=== PATIENT | male | born 1965 | race Caucasian/White ===

== ENCOUNTER 2017-12-05 16:32 | Inpatient (IN) | payer OTHER ==
[~2017-12-05] VITALS: Ht 170.2 cm; Wt 148.9 kg
[2017-12-05 16:38] VITALS: Ht 170.2 cm; Wt 148.9 kg
[2017-12-05 18:05] LABS: BASOPHIL % 0.5 % (0-2); PLATELET COUNT 162 x10^3mcL (130-400); RED CELL DISTRIBUTION WIDTH 13.3 % (11.5-14.5)
[2017-12-05 18:09] LABS: microscopic required? YES; urine erythrocyte 2+ (NEGATIVE)
[2017-12-05 18:15] LABS: CALCIUM 8.5 mg/dL (8.5-10.1); CARBON DIOXIDE 29.7 mmol/L (21-32); CREATININE SERUM 1.4 mg/dL (0.7-1.3); POTASSIUM SERUM 4.9 mmol/L (3.5-5.1)
[2017-12-05 18:20] LABS: BILIRUBIN TOTAL 0.4 mg/dL (0.20-1.00); TOTAL PROTEIN, SERUM 7.2 g/dL (6.4-8.2)
[2017-12-05 18:23] LABS: ALBUMIN 2.8 g/dL (3.4-5.0)
[2017-12-05] MEDS ORDERED: METFORMIN850 M1 PO (19:06)
[2017-12-05] MEDS ORDERED: LISINOPRIL30 M1 PO (19:06)
[2017-12-05] MEDS ORDERED: GLUCOTROL5 MG PO (19:07)
[2017-12-05 19:48] LABS: MAGNESIUM 1.8 mg/dL (1.8-2.4); PHOSPHOROUS 3.3 mg/dL (2.5-4.9)
[2017-12-05 19:55] LABS: T3 TOTAL 1.19 ng/mL
[2017-12-05 20:01] VITALS: BP 171/80
[2017-12-05 20:01] LABS: FREE T4 1.07 ng/dL (0.76-1.46); FREE THYROXINE INDEX 2.4 ug/dL (1.4-4.5); T4(THYROXINE) 7.2 ug/dL (4.7-13.3)
[2017-12-05 20:07] LABS: AMPHETAMINE QUAL UR NONE DETECTED (NEG <=1000)
[2017-12-05 20:19] VITALS: BP 171/80
[2017-12-05 22:42] VITALS: BP 171/80
[2017-12-06 05:10] VITALS: BP 163/80
[2017-12-06 06:49] LABS: BASOPHIL % 0.4 % (0-2); PLATELET COUNT 144 x10^3mcL (130-400); RED CELL DISTRIBUTION WIDTH 13.6 % (11.5-14.5)
[2017-12-06 07:10] LABS: CALCIUM 8.2 mg/dL (8.5-10.1); CREATININE SERUM 1.4 mg/dL (0.7-1.3); POTASSIUM SERUM 4.7 mmol/L (3.5-5.1)
[2017-12-06 10:19] VITALS: BP 150/85
[2017-12-06 13:47] VITALS: BP 152/91
[2017-12-06 16:53] VITALS: BP 149/82
[2017-12-06 21:31] VITALS: BP 163/85
[2017-12-06 22:02] VITALS: BP 154/85
[2017-12-07 06:08] VITALS: BP 127/84
[2017-12-07 06:45] LABS: BASOPHIL % 0.1 % (0-2); PLATELET COUNT 143 x10^3mcL (130-400); RED CELL DISTRIBUTION WIDTH 13.7 % (11.5-14.5)
[2017-12-07 07:26] LABS: CALCIUM 8.5 mg/dL (8.5-10.1); CARBON DIOXIDE 28.2 mmol/L (21-32); CREATININE SERUM 1.7 mg/dL (0.7-1.3); MAGNESIUM 1.8 mg/dL (1.8-2.4); PHOSPHOROUS 5.2 mg/dL (2.5-4.9); POTASSIUM SERUM 5.3 mmol/L (3.5-5.1)
[2017-12-07 08:58] VITALS: BP 155/91
[2017-12-07 13:30] VITALS: BP 139/78
[2017-12-07 16:55] VITALS: BP 148/76; BP 168/76
[2017-12-07 19:10] LABS: CALCIUM 8.4 mg/dL (8.5-10.1); CREATININE SERUM 1.9 mg/dL (0.7-1.3); POTASSIUM SERUM 4.6 mmol/L (3.5-5.1)
[2017-12-07 21:25] VITALS: BP 147/74
[2017-12-08 05:43] VITALS: BP 150/91
[2017-12-08 06:41] LABS: PLATELET COUNT 152 x10^3mcL (130-400); RED CELL DISTRIBUTION WIDTH 13.3 % (11.5-14.5)
[2017-12-08 06:47] LABS: BASOPHIL % 0 % (0-2)
[2017-12-08 06:48] LABS: CALCIUM 8.2 mg/dL (8.5-10.1); CARBON DIOXIDE 26.7 mmol/L (21-32); CREATININE SERUM 1.7 mg/dL (0.7-1.3); PHOSPHOROUS 5.2 mg/dL (2.5-4.9); POTASSIUM SERUM 4.7 mmol/L (3.5-5.1)
[2017-12-08 09:39] VITALS: BP 154/78
[2017-12-08 13:41] VITALS: BP 139/84
[2017-12-08] MEDS ORDERED: LOP50 PO (16:08)
[2017-12-08] MEDS ORDERED: APR10 PO (16:08)
[2017-12-08] MEDS ORDERED: LIPI20 PO (16:08)
[2017-12-08] MEDS ORDERED: ZES20 PO (16:09)
[2017-12-08] MEDS ORDERED: L40 PO (16:09)
[2017-12-08] MEDS ORDERED: GLU10 PO (16:10)
[2017-12-08] MEDS ORDERED: MED4 PO (16:47)
[2017-12-08] MEDS ORDERED: BG FS (16:52)
[2017-12-08] MEDS ORDERED: LEVEMIR100 U/M1 SC (16:52)
[2017-12-08 17:36] VITALS: BP 139/84
[2017-12-08 17:38] VITALS: BP 147/99
== END 2017-12-08 18:34 | disposition home or self-care (01) | DRG 177 ==
LOC: ED 16:32 → DU 19:06
PROVIDERS: Emergency Medicine; Family Medicine
DX: J69.0 Pneumonitis due to inhalation of food and vomit (principal); N17.0 Acute kidney failure with tubular necrosis; E43 Unspecified severe protein-calorie malnutrition; Z68.43 Body mass index [BMI] 50.0-59.9, adult; J45.901 Unspecified asthma with (acute) exacerbation; I16.0 Hypertensive urgency; E11.65 Type 2 diabetes mellitus with hyperglycemia; E78.2 Mixed hyperlipidemia; G89.29 Other chronic pain; M54.9 Dorsalgia, unspecified; I12.9 Hypertensive chronic kidney disease with stage 1 through stage 4 chronic kidney disease, or unspecified chronic kidney disease; E86.0 Dehydration; R31.9 Hematuria, unspecified; B34.9 Viral infection, unspecified; E11.22 Type 2 diabetes mellitus with diabetic chronic kidney disease; N18.9 Chronic kidney disease, unspecified; E66.01 Morbid (severe) obesity due to excess calories
CPT/HCPCS: 82962; 83880; 84439; 87804; 90658; J1815; J1885; J1940; J1956; J2920; J2930; J3490; J7030; J7613; J7620; J7644; Q0092

== ENCOUNTER 2018-04-11 01:32 | Emergency (ER) | payer OTHER ==
[~2018-04-11] VITALS: Ht 170.2 cm; Wt 142.4 kg
[~2018-04-11 01:32] MED LIST: APR10 PO; BG FS; GLU10 PO; GLUCOTROL5 MG PO; L40 PO; LEVEMIR100 U/M1 SC; LIPI20 PO; LISINOPRIL30 M1 PO; LOP50 PO; MED4 PO; METFORMIN850 M1 PO; ZES20 PO
[2018-04-11 01:39] VITALS: BP 165/99; Ht 170.2 cm; Wt 142.4 kg
== END 2018-04-11 02:57 | disposition left against medical advice (07) ==
LOC: ED 01:32
DX: Z53.21 Procedure and treatment not carried out due to patient leaving prior to being seen by health care provider (principal)

== ENCOUNTER 2018-04-11 08:56 | Emergency (ER) | payer OTHER ==
[~2018-04-11] VITALS: Ht 170.2 cm; Wt 141.1 kg
[2018-04-11 09:02] VITALS: Ht 170.2 cm; Wt 141.1 kg
[2018-04-11 10:32] LABS: BASOPHIL % 0.4 % (0-2); PLATELET COUNT 160 x10^3mcL (130-400); RED CELL DISTRIBUTION WIDTH 14.2 % (11.5-14.5)
[2018-04-11 10:38] LABS: UA SPECIFIC GRAVITY >=1.030 (1.005-1.035); microscopic required? YES; urine erythrocyte 2+ (NEGATIVE)
[2018-04-11 10:44] LABS: CALCIUM 7.9 mg/dL (8.5-10.1); CARBON DIOXIDE 24.9 mmol/L (21-32); CREATININE SERUM 1.5 mg/dL (0.7-1.3); POTASSIUM SERUM 4.3 mmol/L (3.5-5.1)
[2018-04-11 10:49] LABS: BILIRUBIN TOTAL 0.6 mg/dL (0.20-1.00); TOTAL PROTEIN, SERUM 7.1 g/dL (6.4-8.2)
[2018-04-11 10:51] LABS: ALBUMIN 2.9 g/dL (3.4-5.0)
[2018-04-11 14:00] VITALS: BP 120/62
== END 2018-04-11 14:00 | disposition home or self-care (01) ==
LOC: ED 08:56
PROVIDERS: Emergency Medicine
DX: R11.10 Vomiting, unspecified (principal); R19.7 Diarrhea, unspecified; R10.31 Right lower quadrant pain; E46 Unspecified protein-calorie malnutrition; E11.22 Type 2 diabetes mellitus with diabetic chronic kidney disease; I12.9 Hypertensive chronic kidney disease with stage 1 through stage 4 chronic kidney disease, or unspecified chronic kidney disease; N18.9 Chronic kidney disease, unspecified; M10.9 Gout, unspecified; E66.01 Morbid (severe) obesity due to excess calories; E78.00 Pure hypercholesterolemia, unspecified
CPT/HCPCS: 83880; J1885; J2405; J7030

== ENCOUNTER 2018-07-07 22:58 | Inpatient (IN) | payer MEDICAID ==
[~2018-07-07] VITALS: Ht 170.2 cm; Wt 150.2 kg
[2018-07-08] VITALS (8 sets, daily range): BP systolic 107–158; BP diastolic 49–88
[2018-07-08 00:05] LABS: BASOPHIL % 0.2 % (0-2); PLATELET COUNT 160 x10^3mcL (130-400); RED CELL DISTRIBUTION WIDTH 13.4 % (11.5-14.5)
[2018-07-08 00:18] LABS: BILIRUBIN TOTAL 0.5 mg/dL (0.20-1.00); CALCIUM 8.2 mg/dL (8.5-10.1); CARBON DIOXIDE 26.4 mmol/L (21-32); CREATININE SERUM 1.5 mg/dL (0.7-1.3); TOTAL PROTEIN, SERUM 6.8 g/dL (6.4-8.2)
[2018-07-08 00:21] LABS: ALBUMIN 3.1 g/dL (3.4-5.0)
[2018-07-08 00:22] LABS: POTASSIUM SERUM 5.6 mmol/L (3.5-5.1)
[2018-07-08 01:52] LABS: MAGNESIUM 1.8 mg/dL (1.8-2.4); PHOSPHOROUS 2.8 mg/dL (2.5-4.9)
[2018-07-08 01:59] LABS: T3 TOTAL 1.13 ng/mL
[2018-07-08 02:03] LABS: CHOLESTEROL/HDL RATIO 3.3
[2018-07-08 02:11] LABS: FREE T4 0.99 ng/dL (0.76-1.46); FREE THYROXINE INDEX 3.1 ug/dL (1.4-4.5); T4(THYROXINE) 8.8 ug/dL (4.7-13.3)
[2018-07-08 06:34] LABS: BASOPHIL % 0.4 % (0-2); PLATELET COUNT 143 x10^3mcL (130-400); RED CELL DISTRIBUTION WIDTH 13.8 % (11.5-14.5)
[2018-07-08 06:50] LABS: CALCIUM 7.9 mg/dL (8.5-10.1); CARBON DIOXIDE 25.7 mmol/L (21-32); CREATININE SERUM 1.7 mg/dL (0.7-1.3)
[2018-07-08 06:58] LABS: POTASSIUM SERUM 6.1 mmol/L (3.5-5.1)
[2018-07-08 08:44] LABS: microscopic required? YES; urine erythrocyte 2+ (NEGATIVE)
[2018-07-09 05:47] VITALS: BP 155/63
[2018-07-09 08:13] VITALS: BP 129/68
[2018-07-09 08:16] LABS: BASOPHIL % 0.5 % (0-2); PLATELET COUNT 141 x10^3mcL (130-400)
[2018-07-09 08:50] LABS: CARBON DIOXIDE 28.2 mmol/L (21-32); CREATININE SERUM 1.7 mg/dL (0.7-1.3)
[2018-07-09 09:23] VITALS: Ht 170.2 cm; Wt 150.2 kg
[2018-07-09 12:17] VITALS: BP 135/76
[2018-07-09 16:22] VITALS: BP 147/78
[2018-07-09 20:55] VITALS: BP 145/56
[2018-07-10 05:34] VITALS: BP 148/61
[2018-07-10 05:41] LABS: BASOPHIL % 0.8 % (0-2); PLATELET COUNT 141 x10^3mcL (130-400)
[2018-07-10 05:58] LABS: CALCIUM 8.5 mg/dL (8.5-10.1); CARBON DIOXIDE 28.7 mmol/L (21-32); CREATININE SERUM 1.7 mg/dL (0.7-1.3); POTASSIUM SERUM 4.9 mmol/L (3.5-5.1)
[2018-07-10 09:22] VITALS: BP 141/62
[2018-07-10] MEDS ORDERED: LEVAQUIN750 MG PO (12:17)
[2018-07-10 12:59] VITALS: BP 178/79
[2018-07-10 13:50] VITALS: BP 137/65
[2018-07-10 13:51] VITALS: BP 137/65
== END 2018-07-10 15:23 | disposition still patient (30) | DRG 720 ==
LOC: ED 22:58 → DU 07-08 00:46
PROVIDERS: Emergency Medicine; Internal Medicine
DX: A41.9 Sepsis, unspecified organism (principal); N17.0 Acute kidney failure with tubular necrosis; J96.01 Acute respiratory failure with hypoxia; J18.9 Pneumonia, unspecified organism; E11.22 Type 2 diabetes mellitus with diabetic chronic kidney disease; E11.65 Type 2 diabetes mellitus with hyperglycemia; E87.5 Hyperkalemia; E44.1 Mild protein-calorie malnutrition; E66.01 Morbid (severe) obesity due to excess calories; Z68.43 Body mass index [BMI] 50.0-59.9, adult; R65.20 Severe sepsis without septic shock; N39.0 Urinary tract infection, site not specified; I12.9 Hypertensive chronic kidney disease with stage 1 through stage 4 chronic kidney disease, or unspecified chronic kidney disease; N18.9 Chronic kidney disease, unspecified; M10.9 Gout, unspecified; E78.5 Hyperlipidemia, unspecified
CPT/HCPCS: 36600; 82962; 83880; 84439; 87804; 90658; 94150; J1815; J1956; J2543; J3490; J7030; J7620; Q0092

== ENCOUNTER 2019-04-18 19:49 | Inpatient (IN) | payer OTHER ==
[~2019-04-18] VITALS: Ht 170.2 cm; Wt 142.0 kg
[~2019-04-18 19:49] MED LIST changes: +LEVAQUIN750 MG PO
[2019-04-18 20:11] VITALS: Ht 170.2 cm; Wt 142.0 kg
--- NOTE | 2019-04-18 20:59 | NUR ---
CALLED TO JONATHON MONTGOMERY, PT STATED HE HAS BEEN "CONSTIPATED FOR 3-4 DAYS" PT SITTING ON TOILET AND STATING "I TOOK SOME EPSOM SALT AND STOOL SOFTENER AND NOW I FEEL LIKE I HAVE TO GO BUT NOTHING IS COMING OUT. I'M HAVING PAIN RIGHT RIGHT" HE POINTED TO RIGHT FLANK. PT A&OX4 IN MILD DISTRESS,ASKING WHAT HE SHOULD DO. EXPLAINED TO PT THAT THE MEDICATION HE TOOK IS PROBABLY TAKING EFFECT AND WILL RECHECK ON HIM SOON.
[2019-04-18 21:31] LABS: BASOPHIL % 0.6 % (0-2); PLATELET COUNT 186 x10^3mcL (130-400)
[2019-04-18 21:34] LABS: RED CELL DISTRIBUTION WIDTH 15.2 % (11.5-14.5)
[2019-04-18 21:48] LABS: CALCIUM 8.8 mg/dL (8.5-10.1); CARBON DIOXIDE 25.4 mmol/L (21-32); CREATININE SERUM 3.2 mg/dL (0.7-1.3); POTASSIUM SERUM 4.9 mmol/L (3.5-5.1)
--- NOTE | 2019-04-18 21:53 | NUR ---
PATIENT SEEN WITH COMPLAIN TOF CONSTIPATION, CLAIM CALL [phone] [facility] BECAUSE HE WAS SEEING "BLACK". PATIENT REPORTS NO BM SINCE MONDAY. SEEN BY MD. BLOOD WAS COLLECTE. PATIENT HAD XRAY DONE. SALINE LOCK INSERTED AT THIS TIME FOR ANTIBIOTIC.PATIENT REPORT HE HAS A RECTAL ABSCESS, AND H/O SAME.
[2019-04-18 21:55] LABS: FREE T4 1.05 ng/dL (0.76-1.46); FREE THYROXINE INDEX 2.3 ug/dL (1.4-4.5)
[2019-04-18 22:00] LABS: BILIRUBIN TOTAL 0.3 mg/dL (0.20-1.00); C REACTIVE PROTEIN 4.2 mg/dL (<=0.9); TOTAL PROTEIN, SERUM 7.5 g/dL (6.4-8.2)
[2019-04-18 22:03] LABS: ALBUMIN 2.9 g/dL (3.4-5.0)
[2019-04-18] MEDS ORDERED: TRAZODONE50 M1 PO (22:06)
[2019-04-18] MEDS ORDERED: ADULT LOW DOSE81 MG PO (22:06)
[2019-04-18] MEDS ORDERED: BACTRIM DS1 TAB PO (22:06)
[2019-04-18] MEDS ORDERED: OSTERA TABLET1 EACH (22:07)
[2019-04-18] MEDS ORDERED: CLONAZEPAM2 MG PO (22:07)
[2019-04-18 22:21] LABS: ERYTHROCYTE SED RATE 98 mm/hr (0-20)
[2019-04-18 22:30] LABS: T3 TOTAL 0.96 ng/mL
[2019-04-18 22:45] LABS: CK-MB 2.1 ng/mL (0-3.6)
[2019-04-18 23:09] LABS: MAGNESIUM 1.9 mg/dL (1.8-2.4); PHOSPHOROUS 4.2 mg/dL (2.5-4.9)
--- NOTE | 2019-04-18 23:37 | NUR ---
PATIENT TRANSPORTED TO ROOM 238
[2019-04-19] VITALS (7 sets, daily range): BP systolic 143–176; BP diastolic 68–92
--- NOTE | 2019-04-19 | NUR ---
RECIEVED PT FROM ED VIA GURNEY, ACCOMPANIED BY NURSE. PT AMBULATED FROM [facility] TO BED BY SELF. ADMITTES WITH CC OF ABD PAIN WITH CONSTIPATION. PT HAD LARGE BM IN ED, DENIES ABD PAIN AT THIS TIME. A/OX4, CALM AND COOPERATIVE. DENIES RESPIRATORY DISTRESS AND SOB. BREATHING EVEN AND UNLABORED ON RA. TELE 12, NORMAL SINUS RHYTHM. DENIES CHEST PAIN, N/V, DIZZINESS, OR PALPATATIONS. ABD SOFT ROUND, OBESE. GENERALIZED TENDERNESS ON PALPATION. VOIDING FREELY. BLE PITTING EDEMA WITH DRY SCALY SKIN, THICKENED TOE NAILS. DRY DARK SCABS TO LEFT FIRST AND SECOND TOE AND R FOURTH TOE. SMALL PIMPLE LIKE WOUND TO LEFT UPPER THIGH, MANAGER INVENTORY. R BUTTOCK DRAINING ABSESS SURRONDED BY INDURATED ERTYTHEMIC SKIN. PURULENT DRAINAGE NOTED. WOUND CLEANED AND CULTURE OBTAINED. ISLAND DRESSING APPLIED. IV TO LFA INTACT AND INFUSING. ORIENTED TO DEVICES AND SURROUNDINGS. CALL LIGHT WITHIN REACH.
[2019-04-19] MEDS ORDERED: LISINOPRIL40 MG PO (00:42)
[2019-04-19] MEDS ORDERED: CLONIDINE HCL0.2 MG PO (00:44)
--- NOTE | 2019-04-19 00:46 | NUR ---
SPOKE TO PT, CONFIRMED CURRENT MEDICATIONS. MED REC UPDATED. INSTRUCTED PT NOT TO TAKE HOME MEDS. PT VERBALIZED UNDERSTANDING.
--- NOTE | 2019-04-19 00:50 | NUR ---
SPOKE TO DR. PEREIRA AND DR. PEOPLES. MADE AWARE OF CURRENT BP 167/77 AND PT HAS NOT TAKEN PM BP MEDS. MADE AWAKE OF PTS REQUEST OF SLEEP AID. STATED WILL CONTINUE HOME MEDS AND ORDER SLEEP AIDS.
--- NOTE | 2019-04-19 02:08 | NUR ---
PT RESTING IN BED WITH EYES CLOSED. LAYING ON L SIDE. SNORING. NO SIGNS OF DISTRESS NOTED. BREATHING EVEN/UNLABORED ON RA. CALL LIGHT WITHIN REACH, BED AT LOWEST POSITION. WILL CONTINUE TO MONITOR.
--- NOTE | 2019-04-19 02:30 | NUR ---
I HAVE REVIEWED THE DATA COLLECTION BY JUANJO YORK: [employer] [employer] ENTERED ON 04/18-04/19 I CONCUR WITH THE DATA AND ANY EXCEPTIONS OR COMMENTS ARE LISTED BELOW:
[2019-04-19 02:33] LABS: microscopic required? YES; urine erythrocyte 2+ (NEGATIVE)
[2019-04-19 02:46] LABS: AMPHETAMINE QUAL UR NONE DETECTED (See below)
--- NOTE | 2019-04-19 05:49 | NUR ---
PT RESTING IN BED COMFORTABLY WITH EYES CLOSED. NO S/S OF PAIN AT THIS TIME. DRESSING TO BUTTOCK CDI. PT FLIPPING MACHINE OPERATOR PENDING SURGICAL CONSULT. BED AT L0WEST POSITION. CALL LIGHT WITHIN REACH. WILL CONTINUE TO MONITOR.
[2019-04-19 06:13] LABS: BASOPHIL % 0.4 % (0-2); PLATELET COUNT 148 x10^3mcL (130-400)
[2019-04-19 06:26] LABS: CALCIUM 8.5 mg/dL (8.5-10.1); CARBON DIOXIDE 23.4 mmol/L (21-32); CREATININE SERUM 2.9 mg/dL (0.7-1.3); MAGNESIUM 2.2 mg/dL (1.8-2.4); PHOSPHOROUS 3.9 mg/dL (2.5-4.9)
[2019-04-19 07:11] LABS: RED CELL DISTRIBUTION WIDTH 15.1 % (11.5-14.5)
--- NOTE | 2019-04-19 07:27 | NUR ---
HANDOFF REPORT RECEIVED. US LEFT BUTTOCK COMPLETED AT BEDSIDE BY US TECH. LANA DYE DISCOMFORT. NOTED LEFT BUTTOCK WOUND. NS AT 100CC/HR INFUSING PERIPHERALLY. INSTRUCTED TO CALL RN FOR ASSIST.
--- NOTE | 2019-04-19 10:29 | NUR ---
OFF FLOOR TO OR VIA GUERNEY.
--- NOTE | 2019-04-19 11:42 | NUR ---
OR REPORT RECEIVED FROM JUANJO CORDOBA.
--- NOTE | 2019-04-19 12:09 | NUR ---
ARRIVED FROM OR S/P I&D RIGHT BUTTOCK. AWAKE AND ORIENTEDX3. WITH 4/10 INCISIONAL PAIN. BUTTOCK DRESSINGS DRY AND INTACT. VITAL SIGNS CHECKED. CALL MARY WITHIN REACH.
--- NOTE | 2019-04-19 15:49 | NUR ---
ASLEEP. RR 20. NO IN ANY DISTRESS.
--- NOTE | 2019-04-19 16:53 | NUR ---
NOT IN ANY DISTRESS. SCDs IN USE. BUTTOCK DRESSINGS DRY/INTACT.
--- NOTE | 2019-04-19 19:16 | NUR ---
HANDOFF REPORT GIVEN TO JUANJO ZARATE.
--- NOTE | 2019-04-19 19:16 | NUR ---
RECEIVED PT FROM PREVIOUS SHIFT. PT A/OX4. DENIES PAIN. DENIES SOB ON RA. IV TO LAC PATENT, INFUSING NS AT 100ML/HR WITH NO S/S OF INFILTRATION. PT SITTING UP IN CHAIR AT BEDSIDE. CALL LIGHT WITHIN REACH, BED IN LOW POSITION. WILL CONTINUE TO MONITOR.
[2019-04-20 05:49] VITALS: BP 140/81
[2019-04-20 06:31] LABS: BASOPHIL % 0.3 % (0-2); PLATELET COUNT 169 x10^3mcL (130-400)
[2019-04-20 06:49] LABS: CALCIUM 9.5 mg/dL (8.5-10.1); CARBON DIOXIDE 21.8 mmol/L (21-32); CREATININE SERUM 2.6 mg/dL (0.7-1.3); MAGNESIUM 2.4 mg/dL (1.8-2.4); PHOSPHOROUS 3.8 mg/dL (2.5-4.9)
[2019-04-20 06:52] LABS: POTASSIUM SERUM 5.6 mmol/L (3.5-5.1)
--- NOTE | 2019-04-20 06:53 | NUR ---
K+ 5.6. DR CLAIRE NOTIFIED VIA [facility]
[2019-04-20 07:18] LABS: RED CELL DISTRIBUTION WIDTH 15.1 % (11.5-14.5)
--- NOTE | 2019-04-20 07:30 | NUR ---
PT IS OX4; NO SOB AT RM AIR; TELE 12; DENIES CP; AMBULATORY DESIRED WITH STABLE GAIT, PER PT; RT BUTTOCK DSG IN INTACT AND WITH OLD BLOOD STAIN; NO ACTIVE BLEED; NSS AT 100 ML/HR INFUSING; LFA SITE PATENT AND WITHOUT INFILTRATION; SAFETY PRECAUTION REINFORCED; WILL CONTINUE TO MONITOR STATUS; DENIES PAIN THAT REQUIRE PAIN MED AT THIS TIME;
[2019-04-20 08:02] VITALS: BP 179/70
--- NOTE | 2019-04-20 09:00 | NUR ---
PT IS AMBULATING IN THE HALLWAY, PUSHING IVF POLE; GAIT IS BALANCE AND STABLE;
--- NOTE | 2019-04-20 11:58 | NUR ---
PT INSTRUCTED NPO FOR US OF THE ABD WITH VERBAL UNDERSTANDING.
[2019-04-20 12:14] VITALS: BP 152/73
[2019-04-20 16:30] VITALS: BP 180/83
--- NOTE | 2019-04-20 17:20 | NUR ---
WOUND DSG ON RT BUTTOCKS DONE PER MD ORDER; TOP DSG TAKEN OUT, BUT PACKING LEFT IN PLACE; NO ACTIVE BLEED AND DRAIN NOTED, BUT OLD STAIN ON THE PACLING. NO COMPLAINTS OF PAIN THAT REQUIRE PAIN MED;
[2019-04-20 19:34] VITALS: BP 170/67
--- NOTE | 2019-04-20 19:57 | NUR ---
RECEIVED PT FROM PREVIOUS SHIFT. AAO. ABLE TO MAKE NEEDS KNOWN, SPEECH CLEAR. TELE #12 SHOWING SINUS BRADYCARDIA, DENIES CP, DENIES PALPITATIONS. BREATHING E/U ON RA. NO S/S ACUTE DISTRESS. R BUTTOCK DRESSING CDI, S/P I&D 04/19/19. IV SITE CDI, NO ERYTHEMA OR EDEMA. CALL LIGHT WITHIN REACH. SAFETY MEASURES IN PLACE. WILL CONTINUE TO MONITOR.
--- NOTE | 2019-04-20 20:43 | NUR ---
PT AMBULATING AROUND HALLWAY. NO S/S ACUTE DISTRESS.
--- NOTE | 2019-04-21 00:02 | NUR ---
PLACED PATIENT ONTO CPAP 10 FIO2 21%. PATIENT AWAKE AND ALERT, CONFIRMED COMFORT ON MASK. SPO2 98 HR 66.
--- NOTE | 2019-04-21 01:48 | NUR ---
PT RESTING IN BED. NO S/S ACUTE DISTRESS. BREATHING E/U WITH CPAP. NO SIGNS OF PAIN NOTED. SAFETY MEASURES IN PLACE. CALL LIGHT WITHIN REACH. WILL CONTINUE TO MONITOR.
[2019-04-21 05:32] VITALS: BP 141/64
[2019-04-21 06:35] LABS: PHOSPHOROUS 4.6 mg/dL (2.5-4.9)
--- NOTE | 2019-04-21 06:39 | NUR ---
PT SLEPT THROUGHOUT NIGHT. DENIES PAIN. NO S/S ACUTE DISTRESS. NO CHANGES OVERNIGHT. ALL NEEDS MET AND ATTENDED TO. IV SITE REMAINS CDI, NO ERYTHEMA OR EDEMA. CALL LIGHT WITHIN REACH. SAFETY MEASURES IN PLACE. WILL ENDORSE CARE TO ONCOMING SHIFT.
--- NOTE | 2019-04-21 07:40 | NUR ---
RECEIVED PT IN BED A/A/OX4 DENIES JERONIMO. RESP EVEN AND UNLABORED WITH CLEAR BS BILAT, DENIES ANY SOB/CP/PRESSURE. BIPAP AT NIGHT. DENIES ANY CP/PRESSURE AT THIS TIME. ABD SOFT, OBESE, NONTENDER WITH ACTIVE BS X4. VOIDING FREELY. S/P I+D OF R MEDIAL BUTTOCK WITH DRSG IN PLACE CDI, WITH INTERNAL PACKING PER REPORT. PT AMBULATORY. CALL LIGHT IN REACH NEEDS ATTENDED TO.
[2019-04-21 07:41] VITALS: BP 169/76
--- NOTE | 2019-04-21 11:22 | NUR ---
PT C/O NAUSEA MEDICATED WITH ZOFRAN PER EMAR. CALL LIGHT IN REACH NEEDS ATTENDED TO.
[2019-04-21 11:44] VITALS: BP 143/105
--- NOTE | 2019-04-21 12:55 | NUR ---
RECEIVED CRITICAL VANCO TROUGH PER PHARMACY OK TO CONT WITH CURRENT DOSE.
[2019-04-21 15:14] LABS: CALCIUM 9.3 mg/dL (8.5-10.1); CARBON DIOXIDE 24.6 mmol/L (21-32); CREATININE SERUM 2.2 mg/dL (0.7-1.3); POTASSIUM SERUM 5.2 mmol/L (3.5-5.1)
--- NOTE | 2019-04-21 15:30 | NUR ---
MICHAEL MONROY CALLED AND MADE AWARE OF K 5.2, PER PIPE FITTER SOFT COPPER NO NEED FOR MEDS AT THIS TIME WILL CHECK LABS IN AM.
[2019-04-21 15:46] LABS: BASOPHIL % 1.3 % (0-2); PLATELET COUNT 191 x10^3mcL (130-400)
[2019-04-21 15:52] LABS: RED CELL DISTRIBUTION WIDTH 14.7 % (11.5-14.5)
--- NOTE | 2019-04-21 16:20 | NUR ---
PT GIVEN IVP HYDRALAZINE PER EMAR FOR B/P . REPORT GIVEN TO HONEY GEIGER ASSUMING PT CARE RESPONSABILITY.
[2019-04-21 16:47] VITALS: BP 169/88
--- NOTE | 2019-04-21 17:55 | NUR ---
PT IS AMBULATING AROUND THE UNIT. PT LOOKS TO BE IN NO ACUTE DISTRESS AT THIS TIME AND DENIES ANY PAIN. PT STATES THAT HE HAS BEEN FEELING SHAKEY FOR A FEW DAYS. IV SITE PATENT WITH NO SIGNS OF ERYTHEMA OR SWELLING WITH IV FLUIDS INFUSING. SOME SWELLING TO BUE AND +2 PITTING EDEMA TO BLE. TELE MONITOR PRESENT. WILL ENDORSE TO ONCOMING SHIFT.
--- NOTE | 2019-04-21 18:21 | NUR ---
PT BLOOD PRESSURE AT 176/86, MAP 112. PT IS ASYMPTOMATIC. PT STATES THAT AFTER WALKING AROUND THE SHAKING STOPPED. WILL GIVE LOPRESSOR 2100 DOSE NOW AND WILL CONTINUE TO MONITOR BLOOD PRESSURE.
--- NOTE | 2019-04-21 18:55 | NUR ---
PT BLOOD PRESSURE 183/82, HEART RATE 82. PT STATES STARTING TO FEEL TIRED AND IS GOING TO GO BACK INTO BED. WILL NOTIFY
--- NOTE | 2019-04-21 19:27 | NUR ---
RECEIVED BEDSIDE REPORT FROM PREVIOUS SHIFT. AAO. RESTING IN BED WITH EYES CLOSED BUT EASILY AROUSABLE. ABLE TO MAKE NEEDS KNOWN, SPEECH CLEAR. TELE #12 SHOWING NSR, DENIES CP, DENIES PALPITATIONS. BREATHING E/U ON RA. NO S/S ACUTE DISTRESS. R BUTTOCK DRESSING CDI, REINFORCED NEEDED. IV SITE CDI, NO ERYTHEMA OR EDEMA. CALL LIGHT WITHIN REACH. SAFETY MEASURES IN PLACE. WILL CONTINUE TO MONITOR.
[2019-04-21 19:36] VITALS: BP 153/60
--- NOTE | 2019-04-21 20:32 | NUR ---
PT C/O HEADACHE, MEDICATED PER EMAR WITH TYLENOL PO.
--- NOTE | 2019-04-21 20:41 | NUR ---
PT REQUESTING SLEEPING MEDICATION. PAGED DR. CHAVIRA.
--- NOTE | 2019-04-21 21:08 | NUR ---
OFFERED TO CHANGE PT R BUTTOCK DRESSING, PT STATES "NO, I'M OKAY". CHECKED DRESSING, REMAINS CDI. PT REPORTS FEELING TIRED AND JUST WANTS TO SLEEP. WILL MEDICATE PER EMAR.
--- NOTE | 2019-04-22 00:19 | NUR ---
PT RESTING IN BED WITH EYES CLOSED. CPAP IN USE. BREATHING E/U. NO SIGNS OF DISTRESS NOTED. NO SIGNS OF PAIN APPARENT. CALL LIGHT WITHIN REACH. SAFETY MEASURESI N PLACE. WILL CONTINUE TO MONITOR.
[2019-04-22 05:05] VITALS: BP 161/57
--- NOTE | 2019-04-22 05:40 | NUR ---
PT REFUSING DRESSING CHANGE AT THIS TIME, PT STILL DROWSY AND WANTS TO SLEEP IN SOME MORE. NO S/S ACUTE DISTRESS. BREATHING E/U, NO LONGER ON CPAP. DENIES PAIN. NO CHANGES OVERNIGHT. ALL NEEDS MET AND ATTENDED TO. CALL LIGHT WITHIN REACH. SAFETY MEASURES IN PLACE. WILL ENDORSE CARE TO ONCOMING SHIFT.
[2019-04-22 06:50] LABS: CALCIUM 8.8 mg/dL (8.5-10.1); CARBON DIOXIDE 23.9 mmol/L (21-32); CREATININE SERUM 2.2 mg/dL (0.7-1.3); POTASSIUM SERUM 4.7 mmol/L (3.5-5.1)
--- NOTE | 2019-04-22 07:06 | NUR ---
BEDSIDE REPORT GIVEN TO JUANJO MAGAÑA. ALL QUESTIONS AND CONCERNS ADDRESSED.
--- NOTE | 2019-04-22 07:07 | NUR ---
RECEIVED PT FROM SHIFT NURSE ASLEEP BUT AROUSABLE. NO ACUTE DISTRESS NOTED. RESP EVEN AND UNLABORED ON CPAP MACHINE. IV INTACT AND PATENT. CALL LIGHT WITHIN REACH. WILL CONTINUE TO MONITOR.
[2019-04-22 07:11] LABS: PLATELET COUNT 192 x10^3mcL (130-400)
[2019-04-22 07:25] LABS: RED CELL DISTRIBUTION WIDTH 15.4 % (11.5-14.5)
[2019-04-22 07:34] VITALS: BP 195/83
[2019-04-22 09:05] LABS: calcium (part of PTHIC) 9.1 mg/dL (8.7-10.2)
--- NOTE | 2019-04-22 09:41 | NUR ---
PT LYING IN BED TALKING ON THE PHONE. NO ACUTE DISTRESS NOTED. CALL LIGHT WITHIN REACH. WILL CONTINUE TO MONITOR.
[2019-04-22] MEDS ORDERED: CLEOCIN HCL150 MG PO (10:10)
--- NOTE | 2019-04-22 11:00 | NUR ---
PT C/O OF HEADACHE 02/15. GAVE TYLENOL ORDERED. WILL CONTINUE TO MONITOR.
--- NOTE | 2019-04-22 11:16 | NUR ---
APPLIED IODOFORM PACKING AND NEW DRESSING CDI TO RIGHT BUTTOCK PER DR. ZIEGLER.
--- NOTE | 2019-04-22 11:41 | NUR ---
PT EXPRESSED RELIEF OF HEADACHE. WILL CONTINUE TO MONITOR.
--- NOTE | 2019-04-22 12:00 | NUR ---
PT AMBULATING AROUND HALLWAY
--- NOTE | 2019-04-22 15:24 | NUR ---
MADE MICHAEL NEWTON AWARE OF HIGH BP 186/76. GAVE HYDRALAZINE ORDERED. WILL CONTINUE TO MONITOR.
[2019-04-22 16:11] VITALS: BP 156/77
--- NOTE | 2019-04-22 16:27 | NUR ---
PT A/OX4 UPON DC. DENIES ANY PAIN OR DISCOMFORT. IV REMOVED AND CATH INTACT EDUCATION PROVIDED. NEW RX GIVEN. PT VERBALIZED UNDERSTANDING. EXTRA SUPPLIES GIVEN. PERSONAL BELONGINGS TAKEN HOME. ACCOMPANIED BY TILE SORTER TO LOBBY.
--- NOTE | 2019-04-23 07:50 | NUR ---
WOUND CONSULT NOT DONE, PT. DISCHARGED.
[2019-04-24 13:06] LABS: VITAMIN D 1,25 DIHYDROXY 34.9 pg/mL (19.9-79.3)
== END 2019-04-22 16:39 | disposition home health service (06) | DRG 383 ==
LOC: ED 19:49 → DU 22:33
PROVIDERS: Specialist; Surgery; ADMIT Internal Medicine
PROC: 0JB90ZZ Excision of Buttock Subcutaneous Tissue and Fascia, Open Approach (ICD-10-PCS; principal; 2019-04-19 10:45)
DX: L02.31 Cutaneous abscess of buttock (principal); N17.0 Acute kidney failure with tubular necrosis; E11.65 Type 2 diabetes mellitus with hyperglycemia; I12.9 Hypertensive chronic kidney disease with stage 1 through stage 4 chronic kidney disease, or unspecified chronic kidney disease; E11.22 Type 2 diabetes mellitus with diabetic chronic kidney disease; M10.9 Gout, unspecified; E66.01 Morbid (severe) obesity due to excess calories; G47.33 Obstructive sleep apnea (adult) (pediatric); N18.9 Chronic kidney disease, unspecified; E44.0 Moderate protein-calorie malnutrition; Z79.4 Long term (current) use of insulin; Z68.42 Body mass index [BMI] 45.0-49.9, adult; D63.8 Anemia in other chronic diseases classified elsewhere
CPT/HCPCS: 36600; 82652; 82962; 84439; G0378; J0360; J2001; J2250; J2405; J2543; J3010; J3370; J3490; J7030; J7050; Q0092

== ENCOUNTER 2019-05-08 06:13 | Day surgery (SDC) | payer OTHER ==
[2019-05-07 14:44] LABS: BASOPHIL % 0.9 % (0-2); PLATELET COUNT 178 x10^3mcL (130-400)
[2019-05-07 14:58] LABS: BILIRUBIN TOTAL 0.3 mg/dL (0.20-1.00); CALCIUM 8.6 mg/dL (8.5-10.1); CARBON DIOXIDE 26.2 mmol/L (21-32); CREATININE SERUM 2.5 mg/dL (0.7-1.3); POTASSIUM SERUM 5.4 mmol/L (3.5-5.1); TOTAL PROTEIN, SERUM 7.1 g/dL (6.4-8.2)
[2019-05-07 15:03] LABS: ALBUMIN 2.9 g/dL (3.4-5.0)
[~2019-05-08] VITALS: Ht 170.2 cm; Wt 138.3 kg
[~2019-05-08 06:13] MED LIST changes: +ADULT LOW DOSE81 MG PO; +BACTRIM DS1 TAB PO; +CLEOCIN HCL150 MG PO; +CLONAZEPAM2 MG PO; +CLONIDINE HCL0.2 MG PO; +LISINOPRIL40 MG PO; +OSTERA TABLET1 EACH; +TRAZODONE50 M1 PO
[2019-05-08 06:55] VITALS: BP 164/81
[2019-05-08 11:55] VITALS: BP 131/69
== END 2019-05-08 10:40 | disposition still patient (30) ==
LOC: DS 06:13 → OR 08:00 → DS 08:00
PROVIDERS: Surgery
DX: T81.31XA Disruption of external operation (surgical) wound, not elsewhere classified, initial encounter (principal); I12.9 Hypertensive chronic kidney disease with stage 1 through stage 4 chronic kidney disease, or unspecified chronic kidney disease; E11.22 Type 2 diabetes mellitus with diabetic chronic kidney disease; N18.4 Chronic kidney disease, stage 4 (severe); E66.8 Other obesity; G47.33 Obstructive sleep apnea (adult) (pediatric); D64.9 Anemia, unspecified; Z68.42 Body mass index [BMI] 45.0-49.9, adult; Z79.82 Long term (current) use of aspirin; Z79.899 Other long term (current) drug therapy; Y65.8 Other specified misadventures during surgical and medical care; Y92.89 Other specified places as the place of occurrence of the external cause
CPT/HCPCS: J0690; J1815; J2001; J2704; J3010; J3490; J7030

== ENCOUNTER 2019-12-24 17:56 | Inpatient (IN) | payer OTHER ==
[~2019-12-24] VITALS: Ht 170.2 cm; Wt 137.5 kg
[2019-12-24 18:08] VITALS: Ht 170.2 cm; Wt 137.5 kg
--- NOTE | 2019-12-24 18:32 | NUR ---
PT PRESENTS TO ED WITH C/O N/V HIGH BP READING AT HOME AND A JERONIMO PRESSURE LIKE PAIN. 07/18 PAIN, PT AAOX4 FOLLOWS COMMANDS. REPORTS HE HASN'T BEEN MONITORING HIS BP AT HOME "FOR A WHILE". PT GOWNED PLACED ON FULL CM NSR AWAITING MD ANTHONY AND ORDERS. EKG IN PROGRESS BY PRETTY EMT
--- NOTE | 2019-12-24 19:02 | NUR ---
PT MEDICATED PER MD ORDERS SEE EMAR.
[2019-12-24 19:09] LABS: BASOPHIL % 0.7 % (0-2); PLATELET COUNT 148 x10^3mcL (130-400); RED CELL DISTRIBUTION WIDTH 13.6 % (11.5-14.5)
[2019-12-24 19:26] LABS: ALBUMIN 2.5 g/dL (3.4-5.0); BILIRUBIN TOTAL 0.3 mg/dL (0.20-1.00); CARBON DIOXIDE 30.1 mmol/L (21-32); CREATININE SERUM 2.6 mg/dL (0.7-1.3); MAGNESIUM 1.7 mg/dL (1.8-2.4); POTASSIUM SERUM 5.2 mmol/L (3.5-5.1); TOTAL PROTEIN, SERUM 6.6 g/dL (6.4-8.2)
[2019-12-24 19:30] LABS: CALCIUM 8.5 mg/dL (8.5-10.1)
--- NOTE | 2019-12-24 20:10 | NUR ---
PT RESTING IN GURNEY WITH EYES CLOSED. RESP E/U, APPEARS IN NO DISTRESS. AROUSABLE TO VERBAL STIMULI. PT STS FEELS BETTER AT THIS TIME, RATES HEADACHE 4/10. BP IMPROVED, VSS CHARTED. 1 FAMILY MEMBER AT BEDSIDE. AWAITING RE-EVAL BY ER PROVIDER.
--- NOTE | 2019-12-24 21:20 | NUR ---
MEDICATED PER ORDER; SEE EMAR. PT REMAINS RESTING IN RNEY, NO ACUTE CHANGES IN PT STATUS. AWAITING BED FOR ADMISSION.
[2019-12-24 21:46] LABS: CHOLESTEROL/HDL RATIO 4.9
[2019-12-24 21:54] LABS: FREE T4 0.98 ng/dL (0.76-1.46); FREE THYROXINE INDEX 2.5 ug/dL (1.4-4.5); T4(THYROXINE) 6.6 ug/dL (4.7-13.3)
[2019-12-24 22:03] LABS: T3 TOTAL 1.2 ng/mL
--- NOTE | 2019-12-24 22:17 | NUR ---
REPORT CALLED TO HAIR GEIGER FOR ADMISSION
[2019-12-24] MEDS ORDERED: CLONIDINE HYDR0.1 M1 PO (22:23)
[2019-12-24] MEDS ORDERED: TOPROL XL50 MG PO (22:23)
[2019-12-24] MEDS ORDERED: VITAMIN D50000 I4 PO (22:24)
[2019-12-24] MEDS ORDERED: LASIX40 MG PO (22:25)
[2019-12-24] MEDS ORDERED: ATORVASTATIN CA40 M1 PO (22:25)
--- NOTE | 2019-12-24 22:45 | NUR ---
RECEIVED PT FROM ED VIA JOSTIN, CAME IN DUE TO HIGH BP, HEADACHE AND 4 EPISODES OF VOMITING. AAOX4. DENIES HEADACHE/DIZZINESS. ABLE TO FOLLOW COMMANDS. NO SOB NOTED, LUNG SOUNDS DIMINISHED ON THE BASES, O2 SAT=98%, ON 2LPM/NC. DENIES CHEST PAIN/PRESSURE, GM=317/91. W/ +1 EDEMA ON BLE, PULSES ARE PALPABLE. DENIES ABDOMINAL DISCOMFORT. VOIDS FREELY. W/ DARK BROWN DISCOLORATION ON BLE. IV SITE PATENT AND INTACT. SIDE RAILS UPX2. CALL LIGHT ON REACH. ENDORSED TO HAIR FOR CONTINUITY OF CARE
[2019-12-24 22:54] VITALS: BP 186/91
[2019-12-25] VITALS (7 sets, daily range): BP systolic 138–185; BP diastolic 73–98
--- NOTE | 2019-12-25 01:45 | NUR ---
PT RESTING. BREATHING EVEN AND UNLABORED. AROUSABLE TO VOICE. NO ACUTE DISTRESS NOTED. CALL BUTTON WITHIN REACH. SAFETY PRECAUTIONS IN PLACE. WILL CONTINUE TO MONITOR.
--- NOTE | 2019-12-25 05:28 | NUR ---
PT SLEPT MOST OF THE NIGHT WITH NO ACUTE DISTRESS NOTED. BREATHING EVEN AND UNLABORED ON NC 2L/MIN NO SOB NOTED. IV PATENT, INFSUING WELL WITH NO S/S OF INFILTRATION NOTED. PT AMBULATORY. MEDICATED PER EMAR. PT DENIES ANY PAIN/N/V. CALL BUTTON WITHIN REACH. SAFETY PRECAUTIONS IN PLACE. WILL CONTINUE TO MONITOR AND ENDORSE CARE TO DAY SHIFT RN.
--- NOTE | 2019-12-25 06:27 | NUR ---
DR NUNES MADE AWARE PT BP OF 164/73 HR70. AWAITING NEW ORDERS.
[2019-12-25 06:36] LABS: BASOPHIL % 0.9 % (0-2); PLATELET COUNT 131 x10^3mcL (130-400); RED CELL DISTRIBUTION WIDTH 13.5 % (11.5-14.5)
[2019-12-25 07:03] LABS: CALCIUM 7.8 mg/dL (8.5-10.1); CARBON DIOXIDE 27.3 mmol/L (21-32); CREATININE SERUM 2.5 mg/dL (0.7-1.3); MAGNESIUM 1.7 mg/dL (1.8-2.4); PHOSPHOROUS 4.5 mg/dL (2.5-4.9); POTASSIUM SERUM 4.9 mmol/L (3.5-5.1)
--- NOTE | 2019-12-25 07:15 | NUR ---
RECEIVED PT FROM NIGHT RN. AAOX4, SPEECH CLR. DENIES JERONIMO. RES E/U. DIMINISHED LUNG SOUNDS AT BASES ON 2L/MIN VIA NC. DENIES CHEST PAIN/PRESSURE. PERIPHERAL PULSES PALPABLE WITH +1 BLE EDEMA NOTED. ABD SOFT WITH ACTIVE BOWEL SOUNDS. NO GI/ COMPLAINT. BROWN DISCOLORATION BLE NOTED. IV TO RAC INFUSING NS AT 150 ML/HR. BED IN LOWEST POSITION, CALL LIGHT WITHIN REACH. WILL CONTINUE TO MONITOR
--- NOTE | 2019-12-25 07:32 | NUR ---
PT RESTING. NO ACUTE DISTRESS NOTED. CALL BUTTON WITHIN REACH. SAFETY PRECAUTIONS IN PLACE. ENDORSED CARE TO DAY SHIFT RN, ALL QUESTIONS ADDRESED.
[2019-12-25 09:43] LABS: microscopic required? YES; urine erythrocyte 1+ (NEGATIVE)
[2019-12-25 10:21] LABS: AMPHETAMINE QUAL UR NONE DETECTED (See below)
--- NOTE | 2019-12-25 15:17 | NUR ---
PT C/OO HEADACHE. GIVEN TYLENOL PER EMAR.
--- NOTE | 2019-12-25 17:22 | NUR ---
PT C/O JERONIMO. GIVEN NORCO PER EMAR.
--- NOTE | 2019-12-25 19:33 | NUR ---
NO SIGNIFICANT CHANGES NOTED. WILL ENDORSE CARE TO NEXT SHIFT
--- NOTE | 2019-12-25 21:24 | NUR ---
PT. CARE ENDORSED OVER TO INCOMING NURSE
--- NOTE | 2019-12-25 21:25 | NUR ---
REPORT RECEIVED FROM DAY SHIFT RN. PATIENT WAS SEEN RESTING COMFORTABLY IN BED. NO DISTRESS NOTED. BREATHING E/U ON 1LNC. NO SOB NOTED. DENIES CP. NO C/O PAIN. IV TO THE RAC. PATENT AND INTACT. NO REDNESS OR SWELLING NOTED. COMFORT AND SAFETY MEASURES IN PLACE. BED IS LOCKED AND IN THE LOWEST POSITION. SIDE RAILS UP X2. CALL LIGHT IS WITHIN REACH. WILL CONTINUE TO MONITOR.
--- NOTE | 2019-12-25 23:32 | NUR ---
BP 178/75, HR 68. PRN APRESOLINE GIVEN FRO HIGH BP. DENIES PAIN AT THIS TIME. NO ACUTE DISTRESSS NOTED. BREATHING E/U ON 1L NC. NO SOB NOTED. SAFETY MEASURES IN PLACE. CALL LIGHT IS WITHIN REACH. WILL CONTINUE TO MONITOR AND REASSESS BP.
[2019-12-26 00:44] VITALS: BP 131/56
--- NOTE | 2019-12-26 01:45 | NUR ---
RESTING IN BED WITH EYES CLOSED. NO DISTRESS NOTED. BREATHING E/U ON 1L NC. NO SOB NOTED. NO S/S OF PAIN NOTED. SAFETY MEASURES IN PLACE. CALL LIGHT IS WITHIN REACH. WILL CONTINUE TO MONITOR.
--- NOTE | 2019-12-26 03:15 | NUR ---
RESTING IN BED WITH EYES CLOSED. NO DISTRESS NOTED. BREATHING E/U ON 1L NC. NO SOB NOTED. SAFETY MEASURES IN PLACE. CALL LIGHT IS WITHIN REACH. WILL CONTINUE TO MONITOR.
[2019-12-26 05:40] VITALS: BP 168/84
[2019-12-26 06:25] LABS: CALCIUM 7.9 mg/dL (8.5-10.1); CARBON DIOXIDE 27.3 mmol/L (21-32); CREATININE SERUM 2.4 mg/dL (0.7-1.3); MAGNESIUM 2.1 mg/dL (1.8-2.4); PHOSPHOROUS 4.1 mg/dL (2.5-4.9); POTASSIUM SERUM 5.2 mmol/L (3.5-5.1)
[2019-12-26 06:26] LABS: BASOPHIL % 0.9 % (0-2); PLATELET COUNT 144 x10^3mcL (130-400); RED CELL DISTRIBUTION WIDTH 13.7 % (11.5-14.5)
--- NOTE | 2019-12-26 06:38 | NUR ---
RESTED IN LONG INTERVALS THROUGHOUT THE NIGHT. NO ACUTE CHANGES NOTED. NO DISTRESS NOTED. BREATHING E/U ON 1L NC. NO SOB NOTED. ALL NEEDS AND CONCERNS ADDRESSED. SAFETY MEASURES IN PLACE. CALL LIGHT IS WITHIN REACH. WILL ENDORSE CARE TO DAY SHIFT RN.
--- NOTE | 2019-12-26 07:00 | NUR ---
AAO TIMES 4. MED SURG. LUNGS CTA. NO SOB. O2 SAT ON RA 98%. BS'S ACTIVE TIMES 4. DUEÑAS STRONG. PERIPHERAL PULSES PALPBLE. +1 EDEMA BLE. IV SITE CDI.
[2019-12-26 08:18] VITALS: BP 181/89
[2019-12-26 13:25] VITALS: BP 125/83
[2019-12-26] MEDS ORDERED: NOR5 PO (15:52)
[2019-12-26] MEDS ORDERED: ZES20 PO (15:52)
[2019-12-26 15:53] VITALS: BP 125/83
[2019-12-26] MEDS ORDERED: LOP50 PO (15:53)
--- NOTE | 2019-12-26 15:53 | NUR ---
K 5.2, SYD HOOVER PULMONARY FUNCTION TECHNOLOGIST AWARE, NO FURTHER ORDERS.
[2019-12-26] MEDS ORDERED: APR10 PO (16:13)
--- NOTE | 2019-12-26 17:01 | NUR ---
WAS GIVEN DISCHARGE INSTRUCTIONS, HE VERBALIZED "I UNDERSTAND" TO ALL INSTRUCTIONS. REMOVED SALINE LOCK, ANGIO INTACT.
== END 2019-12-26 16:58 | disposition home or self-care (01) | DRG 470 ==
LOC: ED 17:56 → MU 21:24
PROVIDERS: Emergency Medicine; ADMIT Internal Medicine
DX: I12.9 Hypertensive chronic kidney disease with stage 1 through stage 4 chronic kidney disease, or unspecified chronic kidney disease (principal); N17.0 Acute kidney failure with tubular necrosis; K31.84 Gastroparesis; E44.0 Moderate protein-calorie malnutrition; E11.21 Type 2 diabetes mellitus with diabetic nephropathy; E11.43 Type 2 diabetes mellitus with diabetic autonomic (poly)neuropathy; E66.01 Morbid (severe) obesity due to excess calories; I16.1 Hypertensive emergency; E11.65 Type 2 diabetes mellitus with hyperglycemia; E11.22 Type 2 diabetes mellitus with diabetic chronic kidney disease; E83.42 Hypomagnesemia; E87.8 Other disorders of electrolyte and fluid balance, not elsewhere classified; E87.5 Hyperkalemia; E86.0 Dehydration; N18.3 Chronic kidney disease, stage 3 (moderate); G47.33 Obstructive sleep apnea (adult) (pediatric); E78.5 Hyperlipidemia, unspecified; Z79.4 Long term (current) use of insulin; Z68.32 Body mass index [BMI] 32.0-32.9, adult; Z91.11 Patient's noncompliance with dietary regimen
CPT/HCPCS: 82962; 83880; 84439; 87804; G0378; J1200; J1815; J1885; J2765; J3475; J3490; J7030; J8597; Q0092

== ENCOUNTER 2020-02-27 21:24 | Emergency (ER) | payer OTHER ==
[~2020-02-27] VITALS: Ht 170.2 cm; Wt 132.4 kg
[~2020-02-27 21:24] MED LIST changes: +ATORVASTATIN CA40 M1 PO; +CLONIDINE HYDR0.1 M1 PO; +LASIX40 MG PO; +NOR5 PO; +TOPROL XL50 MG PO; +VITAMIN D50000 I4 PO
[2020-02-27 21:28] VITALS: Ht 170.2 cm; Wt 132.4 kg
[2020-02-28 03:06] VITALS: BP 138/84
== END 2020-02-28 03:06 | disposition home or self-care (01) ==
LOC: ED 21:24
DX: S70.11XA Contusion of right thigh, initial encounter (principal); S00.532A Contusion of oral cavity, initial encounter; S09.8XXA Other specified injuries of head, initial encounter; S29.9XXA Unspecified injury of thorax, initial encounter; M54.6 Pain in thoracic spine; M10.9 Gout, unspecified; E11.22 Type 2 diabetes mellitus with diabetic chronic kidney disease; I12.9 Hypertensive chronic kidney disease with stage 1 through stage 4 chronic kidney disease, or unspecified chronic kidney disease; N18.9 Chronic kidney disease, unspecified; V49.9XXA Car occupant (driver) (passenger) injured in unspecified traffic accident, initial encounter; Y93.I9 Activity, other involving external motion; Y92.413 State road as the place of occurrence of the external cause; Y99.8 Other external cause status
CPT/HCPCS: J3010; Q0092

== ENCOUNTER 2020-05-19 13:07 | Inpatient (IN) | payer OTHER ==
[~2020-05-19] VITALS: Ht 170.2 cm; Wt 136.2 kg
[2020-05-19 16:40] LABS: BASOPHIL % 0.7 % (0-2); PLATELET COUNT 220 x10^3mcL (130-400); RED CELL DISTRIBUTION WIDTH 12.3 % (11.5-14.5)
[2020-05-19] MEDS ORDERED: HYDRALAZINE HCL25 MG PO (16:46)
[2020-05-19 17:39] LABS: CARBON DIOXIDE 24.4 mmol/L (21-32); POTASSIUM SERUM 5.6 mmol/L (3.5-5.1)
[2020-05-19 17:40] LABS: ALBUMIN 1.9 g/dL (3.4-5.0); BILIRUBIN TOTAL 0.32 mg/dL (0.20-1.00); CALCIUM 7.3 mg/dL (8.5-10.1); CREATININE SERUM 3.4 mg/dL (0.7-1.3); TOTAL PROTEIN, SERUM 5.7 g/dL (6.4-8.2)
[2020-05-19 17:41] LABS: MAGNESIUM 1.8 mg/dL (1.8-2.4)
[2020-05-19 21:58] LABS: UA SPECIFIC GRAVITY 1.015 (1.005-1.035); urine erythrocyte TRACE (NEGATIVE)
[2020-05-19 21:59] LABS: microscopic required? YES
[2020-05-19 22:08] LABS: AMPHETAMINE QUAL UR NONE DETECTED (See below)
[2020-05-20] VITALS (15 sets, daily range): BP systolic 113–178; BP diastolic 46–83
[2020-05-20 03:21] LABS: CALCIUM 8.1 mg/dL (8.5-10.1); CARBON DIOXIDE 26.3 mmol/L (21-32); POTASSIUM SERUM 4.4 mmol/L (3.5-5.1)
[2020-05-20 06:27] LABS: BASOPHIL % 0.9 % (0-2); PLATELET COUNT 245 x10^3mcL (130-400); RED CELL DISTRIBUTION WIDTH 12.6 % (11.5-14.5)
[2020-05-20 06:40] LABS: CALCIUM 8.2 mg/dL (8.5-10.1); CARBON DIOXIDE 22.6 mmol/L (21-32)
[2020-05-20 07:11] LABS: MAGNESIUM 1.9 mg/dL (1.8-2.4); PHOSPHOROUS 4.1 mg/dL (2.5-4.9)
[2020-05-21] VITALS (7 sets, daily range): BP systolic 121–188; BP diastolic 62–91
[2020-05-22 04:55] VITALS: BP 155/73
[2020-05-22 07:59] LABS: CARBON DIOXIDE 25.2 mmol/L (21-32); CREATININE SERUM 2.9 mg/dL (0.7-1.3); MAGNESIUM 1.9 mg/dL (1.8-2.4); PHOSPHOROUS 3.8 mg/dL (2.5-4.9); POTASSIUM SERUM 4.2 mmol/L (3.5-5.1)
[2020-05-22 08:13] VITALS: BP 184/88
[2020-05-22 08:34] LABS: BASOPHIL % 0.9 % (0-2); PLATELET COUNT 264 x10^3mcL (130-400); RED CELL DISTRIBUTION WIDTH 12.7 % (11.5-14.5)
[2020-05-22 09:19] VITALS: BP 184/88
[2020-05-22 13:17] VITALS: BP 192/96
[2020-05-22 21:16] VITALS: BP 160/77
[2020-05-23 05:09] VITALS: BP 164/81
[2020-05-23 07:17] LABS: CALCIUM 7.8 mg/dL (8.5-10.1); CARBON DIOXIDE 25.8 mmol/L (21-32); CREATININE SERUM 3.1 mg/dL (0.7-1.3); PHOSPHOROUS 4.1 mg/dL (2.5-4.9)
[2020-05-23 07:21] LABS: BASOPHIL % 1.3 % (0-2); PLATELET COUNT 266 x10^3mcL (130-400); RED CELL DISTRIBUTION WIDTH 12.2 % (11.5-14.5)
[2020-05-23 08:26] VITALS: BP 171/83
[2020-05-23 11:26] VITALS: BP 171/60
[2020-05-23 17:25] VITALS: BP 160/84
[2020-05-23 19:11] VITALS: BP 150/56
[2020-05-23 21:14] VITALS: BP 171/82
[2020-05-24 05:43] VITALS: BP 172/85
[2020-05-24 08:17] VITALS: BP 173/81
[2020-05-24 09:46] LABS: CALCIUM 7.8 mg/dL (8.5-10.1); CARBON DIOXIDE 27.7 mmol/L (21-32); CREATININE SERUM 3.3 mg/dL (0.7-1.3); MAGNESIUM 1.9 mg/dL (1.8-2.4); PHOSPHOROUS 4.1 mg/dL (2.5-4.9); POTASSIUM SERUM 4.3 mmol/L (3.5-5.1)
[2020-05-24 10:12] LABS: BASOPHIL % 0.7 % (0-2); PLATELET COUNT 335 x10^3mcL (130-400); RED CELL DISTRIBUTION WIDTH 12.6 % (11.5-14.5)
[2020-05-24 12:53] VITALS: BP 155/71
[2020-05-24 16:22] VITALS: BP 156/76
[2020-05-24 21:12] VITALS: BP 160/57
[2020-05-25 04:55] VITALS: BP 164/82
[2020-05-25 07:51] LABS: BASOPHIL % 1.3 % (0-2); PLATELET COUNT 231 x10^3mcL (130-400); RED CELL DISTRIBUTION WIDTH 12.6 % (11.5-14.5)
[2020-05-25 08:08] LABS: CALCIUM 7.6 mg/dL (8.5-10.1); CARBON DIOXIDE 28.8 mmol/L (21-32); CREATININE SERUM 3.3 mg/dL (0.7-1.3); MAGNESIUM 2.1 mg/dL (1.8-2.4); PHOSPHOROUS 4.3 mg/dL (2.5-4.9); POTASSIUM SERUM 4.3 mmol/L (3.5-5.1)
[2020-05-25 08:51] VITALS: BP 172/84
[2020-05-25] MEDS ORDERED: AUGMENTIN 875-1 EACH PO (12:09)
[2020-05-25] MEDS ORDERED: HYDRALAZINE HY100 MG PO (12:10)
[2020-05-25] MEDS ORDERED: AMLODIPINE BESY10 M2 PO (12:11)
[2020-05-25] MEDS ORDERED: COREG25 M1 PO (12:12)
[2020-05-25] MEDS ORDERED: LANTI SQ (12:13)
[2020-05-25] MEDS ORDERED: HUMULIN R100 U/1 M1 SC (12:14)
[2020-05-25] MEDS ORDERED: ULTRAM50 MG PO (12:17)
[2020-05-25] MEDS ORDERED: BG FS (12:17)
[2020-05-25 12:35] VITALS: BP 130/58
[2020-05-25 15:10] VITALS: BP 130/58
== END 2020-05-25 17:00 | disposition home health service (06) | DRG 720 ==
LOC: ED 13:07 → IC 19:08 → DU 19:08 → EDBEDREQ 22:08 → EDBEDREQSVC 22:08 → IC 05-20 00:47 → DU 05-20 18:32
PROVIDERS: Emergency Medicine; Internal Medicine; ADMIT Family Medicine; ATTEND Family Medicine
PROC: 0Y900ZZ Drainage of Right Buttock, Open Approach (ICD-10-PCS; principal; 2020-05-19)
PROC: 0Y900ZZ Drainage of Right Buttock, Open Approach (ICD-10-PCS; 2020-05-22)
DX: A41.9 Sepsis, unspecified organism (principal); N17.0 Acute kidney failure with tubular necrosis; E11.22 Type 2 diabetes mellitus with diabetic chronic kidney disease; L02.31 Cutaneous abscess of buttock; L03.115 Cellulitis of right lower limb; E11.65 Type 2 diabetes mellitus with hyperglycemia; Z20.828 Contact with and (suspected) exposure to other viral communicable diseases; I12.9 Hypertensive chronic kidney disease with stage 1 through stage 4 chronic kidney disease, or unspecified chronic kidney disease; E87.1 Hypo-osmolality and hyponatremia; E78.5 Hyperlipidemia, unspecified; Z79.899 Other long term (current) drug therapy; Z82.49 Family history of ischemic heart disease and other diseases of the circulatory system; E87.5 Hyperkalemia; E87.8 Other disorders of electrolyte and fluid balance, not elsewhere classified; E66.01 Morbid (severe) obesity due to excess calories; Z71.3 Dietary counseling and surveillance; Z79.4 Long term (current) use of insulin; Z68.42 Body mass index [BMI] 45.0-49.9, adult; N18.4 Chronic kidney disease, stage 4 (severe); E46 Unspecified protein-calorie malnutrition
CPT/HCPCS: 82962; 83880; G0378; J0360; J1170; J1815; J1940; J2001; J2405; J2543; J3010; J3370; J7030; J7040; Q0092; U0003-CS

== ENCOUNTER 2020-07-22 13:18 | Emergency (ER) | payer OTHER ==
[~2020-07-22] VITALS: Ht 170.2 cm; Wt 145.6 kg
[~2020-07-22 13:18] MED LIST changes: +AMLODIPINE BESY10 M2 PO; +AUGMENTIN 875-1 EACH PO; +COREG25 M1 PO; +HUMULIN R100 U/1 M1 SC; +HYDRALAZINE HCL25 MG PO; +HYDRALAZINE HY100 MG PO; +LANTI SQ; +ULTRAM50 MG PO
[2020-07-22 13:27] VITALS: Ht 170.2 cm; Wt 145.6 kg
[2020-07-22 16:12] VITALS: BP 176/91
== END 2020-07-22 16:12 | disposition home or self-care (01) ==
LOC: ED 13:18
DX: I16.0 Hypertensive urgency (principal); E11.22 Type 2 diabetes mellitus with diabetic chronic kidney disease; I12.9 Hypertensive chronic kidney disease with stage 1 through stage 4 chronic kidney disease, or unspecified chronic kidney disease; N18.30 Chronic kidney disease, stage 3 unspecified; M10.9 Gout, unspecified

== ENCOUNTER 2020-11-22 18:00 | Emergency (ER) | payer OTHER, SELFPAY ==
[~2020-11-22] VITALS: Ht 167.6 cm; Wt 138.3 kg
[2020-11-22 18:10] VITALS: Ht 167.6 cm; Wt 138.3 kg
[2020-11-22 18:54] LABS: PLATELET COUNT 159 x10^3mcL (152-348)
[2020-11-22 18:57] LABS: BASOPHIL % 2.5 % (0.2-1.5); RED CELL DISTRIBUTION WIDTH 14.7 % (12.1-16.2)
[2020-11-22 19:06] LABS: ALBUMIN 2.6 g/dL (3.4-5.0); BILIRUBIN TOTAL 0.3 mg/dL (0.20-1.00); CALCIUM 7.4 mg/dL (8.5-10.1); CARBON DIOXIDE 24.9 mmol/L (21-32); POTASSIUM SERUM 5.1 mmol/L (3.5-5.1); TOTAL PROTEIN, SERUM 6.9 g/dL (6.4-8.2)
[2020-11-22 19:09] LABS: CREATININE SERUM 5.8 mg/dL (0.7-1.3)
[2020-11-22 19:22] VITALS: BP 188/96
== END 2020-11-22 20:15 | disposition home or self-care (01) ==
LOC: ED 18:00
PROVIDERS: Emergency Medicine
DX: E11.22 Type 2 diabetes mellitus with diabetic chronic kidney disease (principal); I12.9 Hypertensive chronic kidney disease with stage 1 through stage 4 chronic kidney disease, or unspecified chronic kidney disease; N18.30 Chronic kidney disease, stage 3 unspecified; N23 Unspecified renal colic